=== PATIENT | male | born 1955 | race Caucasian/White ===

== ENCOUNTER → 2020-10-16 | Outpatient (CLI) | payer OTHER ==
[~2020-10-16] MED LIST: ALBU90OI; ANTIHISTAMINE; BUDE6HFA; IBUP400 PO; LORPSEER12 PO; LOSA50 PO; OXYACE5T PO
== END | disposition home or self-care (01) ==
LOC: PLD 13:14 → LAB SHORT 13:14
DX: D36.14 Benign neoplasm of peripheral nerves and autonomic nervous system of thorax (principal)
CPT/HCPCS: 88305